=== PATIENT | female | born 1940 | race Caucasian/White ===

== ENCOUNTER 2018-01-06 10:25 | Emergency (ER) | payer MEDICARE, BC ==
--- NOTE | 2018-01-06 11:16 | ER Document Report ---
ED General - General Chief Complaint: Numbness of Face Stated Complaint: ARM AND FACIAL NUMBNESS Time Seen by Provider: 01/06/18 10:48 Notes: Patient says she is experiencing numbness of her left hand which comes and goes for the past week. She is also noticed numbness of the left side of her face during this week. The episodes seem to be occurring more frequently and lasting longer. She is not having any motor deficits and is not having any problems with her balance. No visual changes. Has had some headache on the left side of her head as well as some "pressure" in that ear. Patient has not had any actual chest pains. This morning, patient noticed some discomfort in the left axilla, which is the first time that has happened. Patient had diagnosis of a TIA in 2003 which affected her right side, more motor function, as well as some blurry vision. No shortness of breath or difficulty breathing. Patient has hypertension, but usually well controlled. Has not missed any of her medications. Says she has been told to take a baby aspirin every day, but only takes it every other day because she does not tolerate it well. Has experienced some pains in her right foot which she thought was due to an old injury but saw a vascular surgeon in [place] with her that she had intermittent claudication for which they recommended the aspirin. TRAVEL OUTSIDE OF THE [place] IN LAST 30 DAYS: No - Related Data Allergies/Adverse Reactions: No Known Allergies Allergy (Unverified 01/06/18 10:27) Past Medical History - Social History Smoking Status: Unknown if Ever Smoked Cigarette use (# per day): No Family History: Reviewed & Not Pertinent - Past Medical History Cardiac Medical History: Reports: Hx Hypertension Denies: Hx Atrial Fibrillation, Hx Coronary Artery Disease, Hx DVT, Hx Heart Attack Neurological Medical History: Reports: Other - History of TIA in 2004 which cause weakness of her right side and visual sx Endocrine Medical History: Denies: Hx Diabetes Mellitus Type 1, Hx Diabetes Mellitus Type 2 Review of Systems - Review of Systems Notes: REVIEW OF SYSTEMS: CONSTITUTIONAL : Denies fever. EENT: Denies eye, ear, nose or mouth or throat pain or other symptoms. "Pressure" feeling in left ear. CARDIOVASCULAR: Denies chest pain. Did have some discomfort in the left axilla this morning, for the first time. Patient has warm and pink toes on both feet. However, I do not feel dorsalis pedis pulses bilaterally. I do, however, definitely feel very good posterior tibial pulses bilaterally. Capillary refill is brisk and normal bilaterally. RESPIRATORY: Denies cough, chest congestion, or shortness of breath. GASTROINTESTINAL: Denies abdominal pain or nausea, vomiting, or diarrhea. GENITOURINARY: Denies difficulty or painful urinating, urinary frequency, blood in urine. MUSCULOSKELETAL: Denies back or neck pain. Denies joint pain or swelling. SKIN: Denies rash or skin lesions. NEUROLOGICAL: See HPI. Denies LOC or altered mental status. Headache on the left side of her head. Sensory losses of the left face and left hand, but denies motor deficits. ALL OTHER SYSTEMS REVIEWED AND NEGATIVE. Physical Exam - Vital signs Vitals: Temp Pulse Resp BP Pulse Ox 98.0 F 95 14 194/84 H 97 01/06/18 10:30 01/06/18 10:30 01/06/18 10:30 01/06/18 10:30 01/06/18 10:30 Interpretation: Hypertensive - Notes Notes: PHYSICAL EXAMINATION: GENERAL: Well-appearing, in no acute distress. Ambulatory without difficulty. HEAD: Atraumatic, normocephalic. EYES: Pupils equal round and reactive to light, extraocular movements intact. ENT: oropharynx clear without exudates. Moist mucous membranes. NECK: Normal range of motion, supple. No carotid bruits heard. LUNGS: Breath sounds clear and equal bilaterally. No chest wall or rib tenderness. HEART: Regular rate and rhythm without murmurs. ABDOMEN: Soft, nontender. No guarding or rebound. No masses. BACK: No tenderness throughout entire back. EXTREMITIES: Normal range of motion without pain. NEUROLOGICAL: Normal speech, normal gait. Normal sensory, motor, and reflex exams. Awake, alert, and oriented x3. Cranial nerves normal. PSYCH: Normal mood, normal affect. SKIN: Warm, dry, no rashes. Course - Re-evaluation Re-evalutation: 01/06/18 12:[address] Labs [address] essentially normal. CT scan essentially normal. Discussed this case with patient's primary care provider, Dr. Encarnacion, and we will obtain carotid Dopplers and MRI of the brain. 01/06/18 19:42 Both MRI of the brain and MRA and the carotid Dopplers were normal. - Vital Signs Vital signs: Temp Pulse Resp BP Pulse Ox 98.0 F 78 16 158/68 H 98 01/06/18 17:45 01/06/18 17:45 01/06/18 17:45 01/06/18 17:45 01/06/18 17:45 - Laboratory Result Diagrams: 01/06/18 10:53 01/06/18 10:53 Laboratory results interpreted by me: 01/06/18 10:53 Calcium 10.3 H - Diagnostic Test Radiology reviewed: Image reviewed, Reports reviewed - CT of the head shows some chronic microvascular ischemic changes, nothing acute. No stroke seen. Discharge - Discharge Clinical Impression: Left facial numbness, Numbness of left hand, TIA (transient ischemic attack) Condition: Stable Disposition: HOME, SELF-CARE Additional Instructions: Numbness or Paresthesia Definition: Numbness and tingling are decreased or abnormal sensations caused by altered sensory nerve function. Description: The feeling of having a foot "fall asleep" is a familiar one. This same combination of numbness and tingling can occur in any region of the body and may be caused by a wide variety of disorders. Sensations such as these , which occur without any associated stimulus, are called paresthesias. Other types of paresthesias include feelings of cold, warmth, burning, itching, and skin crawling. Causes: Sensation is carried to the brain by neurons (nerve cells) running from the outer parts of the body to the spinal cord in bundles called nerves. In the spinal cord, these neurons make connections with other neurons that run up to the brain. Paresthesias are caused by disturbances in the function of neurons in the sensory pathway. This disturbance can occur in the central nervous system (the brain and spinal cord), the nerve roots that are attached to the spinal cord, or the peripheral nervous system (nerves outside the brain and spinal cord). Peripheral disturbances are the most common cause of paresthesias. "Falling asleep" occurs when the blood supply to a nerve is cut off-a condition called ischemia. Ischemia usually occurs when an artery is compressed as it passes through a tightly flexed joint. Sleeping with the arms above the head or sitting with the legs tightly crossed frequently cause numbness and tingling. Direct compression of the nerve also causes paresthesias. Compression can be short-lived, as when a heavy backpack compresses the nerves passing across the shoulders. Compression may also be chronic. Chronic nerve compression occurs in entrapment syndromes. The most common example is carpal tunnel syndrome. Carpal tunnel syndrome occurs when the median nerve is compressed as it passes through a narrow channel in the wrist. Repetitive motion or prolonged vibration can cause the lining of the channel to swell and press on the nerve. Chronic nerve root compression, or radiculopathy, can occur in disk disease or spinal arthritis. Other causes of paresthesias related to disorders of the peripheral nerves include: * Metabolic or nutritional disturbances. These disturbances include diabetes, hypothyroidism (a condition caused by too little activity of the thyroid gland) , alcoholism, malnutrition, and vitamin B12 deficiency. Trauma. Trauma includes injuries that crush, sever, or pull on nerves. * Inflammation. * Connective tissue disease. These diseases include arthritis, systemic lupus erythematosus (a chronic inflammatory disease that affects many systems of the body, including the nervous system), polyarteritis nodosa (a vascular disease that causes widespread inflammation and ischemia of small and medium-size arteries), and Sj&ouml;gren's syndrome (a disorder marked by insufficient moisture in the tear ducts, salivary glands, and other glands). * Toxins. Toxins include heavy metals (metallic elements such as arsenic, lead, and mercury which can, in large amounts, cause poisoning), certain antibiotics and chemotherapy agents, solvents, and overdose of pyridoxine (vitamin B6). * Malignancy. * Infections. Infections include Lyme disease, human immunodeficiency virus (HIV ), and leprosy. * Hereditary disease. These diseases include Efhmalz-Ylikk-Yeoqn disease (a hereditary disorder that causes wasting of the leg muscles, resulting in malformation of the foot), porphyria (a group of inherited disorders in which there is abnormally increased production of substances called porphyrins), and Miguel-Brown's syndrome (a hereditary disorder of the nerve root). Paresthesias can also be caused by central nervous system disturbances, including stroke, TIA (transient ischemic attack), tumor, trauma, multiple sclerosis, or infection. Symptoms: Sensory nerves supply or innervate particular regions of the body. Determining the distribution of symptoms is an important way to identify the nerves involved. For instance, the median nerve innervates the thumb, the first two fingers, half of the ring finger, and the part of the hand to which they connect. The ulnar nerve innervates the other half of the ring finger, the little finger, and the remainder of the hand. Distribution of symptoms may also aid diagnosis of the underlying disease. Diabetes usually causes a symmetrical "glove and stocking" distribution in the hands and feet. Multiple sclerosis may cause symptoms in several, widely areas. Other symptoms may accompany paresthesias, depending on the type and severity of the nerve disturbance. For instance, weakness may accompany damage to nerves that carry both sensory and motor neurons. (Motor neurons are those that carry messages outward from the brain.) Diagnosis: A careful history of the patient is needed for a diagnosis of paresthesias. The medical history should focus on the onset, duration, and location of symptoms. The history may also reveal current related medical problems and recent or past exposure to drugs, toxins, infection, or trauma. The family medical history may suggest a familial disorder. A work history may reveal repetitive motion, chronic vibration, or industrial chemical exposure. The physical and neurological examination tests for distribution of symptoms and alterations in reflexes, sensation, or strength. The distribution of symptoms may be mapped by successive stimulation over the affected area of the body. Lab tests for paresthesia may include blood tests and urinalysis to detect metabolic or nutritional abnormalities. Other tests are used to look for specific suspected causes. Nerve conduction velocity tests, electromyography, and imaging studies of the affected area may be employed. Nerve biopsy may be indicated in selected cases. Treatment: Treatment of paresthesias depends on the underlying cause. For limbs that have "fallen asleep," restoring circulation by stretching, exercising , or massaging the affected limb can quickly dissipate the numbness and tingling. If the paresthesia is caused by a chronic disease such as diabetes or occurs as a complication of treatments such as chemotherapy, most treatments are aimed at relieving symptoms. Anti-inflammatory drugs such as aspirin or ibuprofen are recommended if symptoms are mild. In more difficult cases, antidepressant drugs such as amitriptyline (Elavil) are sometimes prescribed. These drugs are given at a much lower dosage for this purpose than for relief of depression. They are thought to help because they alter the body's perception of pain. In severe cases, opium derivatives such as codeine can be prescribed. Currently trials are being done to determine whether treatment with human nerve growth factor will be effective in regenerating the damaged nerves. Alternative treatment: Several alternative treatments are available to help relieve symptoms of paresthesia. Nutritional therapy includes supplementation with B complex vitamins, especially vitamin B 12 (intramuscular injection of vitamin B12 is most effective). Vitamin supplements should be used cautiously however. Overdose of Vitamin B6 is one of the causes of paresthesias. People experiencing paresthesia should also avoid alcohol. Acupuncture and massage are said to relieve symptoms. Self-massage with aromatic oils is sometimes helpful. The application of topical ointments containing capsaicin, the substance that makes hot peppers hot, provides relief for some. It may also be helpful to wear loosely fitting shoes and clothing. None of these alternatives should be used in place of traditional therapy for the underlying condition. Prognosis: Treating the underlying disorder may reduce the occurrence of paresthesias. Paresthesias resulting from damaged nerves may persist throughout or even beyond the recovery period. The overall prognosis depends on the cause. Prevention: Preventing the underlying disorder may reduce the incidence of paresthesias. For those with frequent paresthesias caused by ischemia, changes in posture may help. Transient Ischemic Attack You have been diagnosed as having a transient ischemic attack (TIA). This is caused when an artery to the brain has been temporarily blocked. It can result in visual changes, difficulty with speech, and weakness or numbness -- usually limited to one side of the body. TIA symptoms usually resolve within an hour, but a TIA is serious, as it may be a warning sign of an impending stroke. To prevent further episodes, you may be placed on medication to reduce the possibility that your platelets will aggregate and form blood clots in the arteries that supply the brain. Usually, this includes aspirin and sometimes other platelet inhibitors. Further evaluation is often necessary to make an exact diagnosis as to where these blood clots are originating, and if anything else needs to be done to correct the problem. Call the physician or go to the emergency room if episodes occur with increasing frequency. If symptoms occur that don't go away within a few minutes , call 911. NORMAL EXAM AND WORKUP: At this time, your examination and workup show no significant abnormality. No significant abnormal physical findings were noted. All laboratory, EKG, and imaging (x-ray, CT scans, ultrasound) studies that were ordered show no significant abnormality. Although your examination and all studies that were ordered showed no significant abnormal finding, there are no examinations and no studies that are 100% accurate. There is always the possibility that some abnormality could exist and not be detected with physical examination or within the limits and capabilities of laboratory and other studies. You should return or follow up as you were instructed on your visit today for further evaluation if your symptoms do not resolve. Aspirin Aspirin has been shown to have a beneficial effect on blood circulation by reducing the clotting effect of platelets in the blood. These beneficial effects can be achieved by taking just a single baby (62.5 mg) aspirin a day. It is recommended that any person over the age of forty take a single baby aspirin every day for heart and brain circulation, unless you are allergic to aspirin or have some significant bleeding disorder. It is strongly recommended that people who have proven cardiac or blood circulation disturbances should take a baby aspirin every day. Take a baby aspirin daily or, alternatively, 2 baby aspirins every other day. FOLLOW-UP CARE: If you have been referred to a physician for follow-up care, call the physician s office for an appointment as you were instructed or within the next two days. If you experience worsening or a significant change in your symptoms, notify the physician immediately or return to the Emergency Department at any time for re-evaluation. Follow-up with your primary care provider, Dr. Encarnacion. Call his office in the morning to schedule a follow-up appointment. If you develop any new or troubling signs, return for us to reevaluate your condition. Referrals: DANO MERCADO MD [Primary Care Provider] - Follow up as needed
[2018-01-06 11:25] LABS: ABSOLUTE EOSINOPHILS # (AUTO) 0.2 10^3/uL (0.0-0.6); ABSOLUTE LYMPHOCYTES (AUTO) 3.1 10^3/uL (0.5-4.7); ABSOLUTE MONOCYTES (AUTO) 0.7 10^3/uL (0.1-1.4); ABSOLUTE NEUT (AUTO) 3.3 10^3/uL (1.7-8.2); BASOPHILS % (AUTO) 0.5 % (0-2); EOSINOPHILS % (AUTO) 2.4 % (0-6); HEMATOCRIT 43.7 % (36.0-47.0); HEMOGLOBIN 15.3 g/dL (12.0-15.5); LYMPHOCYTES % (AUTO) 42.7 % (13-45); MEAN CORPUSCULAR HEMOGLOBIN 32.4 pg (27.0-33.4); MEAN CORPUSCULAR VOLUME 93 fl (80-97); PLATELET COUNT 232 10^3/uL (150-450); RED BLOOD COUNT 4.73 10^6/uL (3.72-5.28); RED CELL DISTRIBUTION WIDTH 12.3 % (11.5-14.0); SEGMENTED NEUTROPHILS % (AUTO) 44.4 % (42-78); TOTAL CELLS COUNTED % (AUTO) 100 %; WHITE BLOOD COUNT 7.3 10^3/uL (4.0-10.5)
[2018-01-06 11:39] LABS: ALANINE AMINOTRANSFERASE 31 U/L (9-52); ALBUMIN 4.7 g/dL (3.5-5.0); ALKALINE PHOSPHATASE 53 U/L (38-126); ANION GAP 14 (5-19); ASPARTATE AMINO TRANSFERASE 29 U/L (14-36); BILIRUBIN,DIRECT 0.3 mg/dL (0.0-0.4); BILIRUBIN,TOTAL 1.2 mg/dL (0.2-1.3); BLOOD UREA NITROGEN 16 mg/dL (7-20); CALCIUM 10.3 mg/dL (8.4-10.2); CARBON DIOXIDE 28 mmol/L (22-30); CHLORIDE 101 mmol/L (98-107); CREATINE KINASE 55 U/L (30-135); GLUCOSE 95 mg/dL (75-110); POTASSIUM 4.3 mmol/L (3.6-5.0); SODIUM 143.3 mmol/L (137-145)
--- NOTE | 2018-01-06 11:45 | RADIOLOGY REPORT (SQ) ---
EXAM DESCRIPTION: CT HEAD WITHOUT COMPLETED DATE/TIME: 01/06/2018 11:27 am REASON FOR STUDY: numbness COMPARISON: None. TECHNIQUE: Axial images acquired through the brain without intravenous contrast. Images reviewed wi th bone, brain and subdural windows. Images stored on PACS. All CT scanners at this facility use dose modulation, iterative reconstruction, and/or weight based d osing when appropriate to reduce radiation dose to as low as reasonably achievable (ALARA). [facility]: Dose Right [facility]: CareDose [facility]: Dose Right [facility]: Teradose 4D [facility]: Periscape RADIATION DOSE: CT Rad equipment meets quality standard of care and radiation dose reduction techniq ues were employed. CTDIvol: 53.2 mGy. DLP: 1070 mGy-cm. mGy. LIMITATIONS: None. FINDINGS: VENTRICLES: Prominent. CEREBRUM: No masses. No hemorrhage. No midline shift. Areas of low density in the white matter mos t likely due to chronic micro-vascular ischemic change. No evidence for acute infarction. CEREBELLUM: No masses. No hemorrhage. No alteration of density. No evidence for acute infarction. EXTRAAXIAL SPACES: Mild age-related involutional change. No fluid collections. No masses. ORBITS AND GLOBE: No intra- or extraconal masses. Normal contour of globe without masses. CALVARIUM: No fracture. PARANASAL SINUSES: No fluid or mucosal thickening. SOFT TISSUES: No mass or hematoma. OTHER: No other significant finding. IMPRESSION: MILD CHRONIC CHANGES OF ATROPHY AND MICROVASCULAR ISCHEMIA. NO ACUTE PROCESS. EVIDENCE OF ACUTE STROKE: NO. TECHNICAL DOCUMENTATION: JOB ID: [id number] Quality ID # [id number]: Final reports with documentation of one or more dose reduction techniques (e.g., Au tomated exposure control, adjustment of the mA and/or kV according to patient size, use of iterative reconstruction technique) 2010 [employer]- All Rights Reserved Reading location - IP/workstation name: [email or web address]
[2018-01-06 11:51] LABS: CREATINE KINASE MB 0.69 ng/mL (<4.55)
[2018-01-06 11:53] LABS: TROPONIN I < 0.012 ng/mL
[2018-01-06 12:14] LABS: APPEARANCE,URINE CLEAR; BILIRUBIN,URINE NEGATIVE (NEGATIVE); COLOR,URINE STRAW; GLUCOSE, URINE NEGATIVE (NEGATIVE); KETONES,URINE NEGATIVE (NEGATIVE); LEUKOCYTE ESTERASE,URINE NEGATIVE (NEGATIVE); NITRITE,URINE NEGATIVE (NEGATIVE); PROTEIN,URINE NEGATIVE (NEGATIVE); URINE SPECIFIC GRAVITY 1.003; UROBILINOGEN,URINE NEGATIVE mg/dL (<2.0)
[2018-01-06] MEDS ORDERED: LORAZEPAM 1 MG TABLET PO ONE (13:15)
--- NOTE | 2018-01-06 13:25 | EKG REPORT ---
SEVERITY:- NORMAL ECG - SINUS RHYTHM : Confirmed by: Juan Cheung MD 06-Jan-2018 13:24:53
--- NOTE | 2018-01-06 15:17 | RADIOLOGY REPORT (SQ) ---
EXAM DESCRIPTION: MRI HEAD WITHOUT; MRA HEAD WITHOUT COMPLETED DATE/TIME: 01/06/2018 2:52 pm REASON FOR STUDY: Numb left face and left hand, Hx vasc insufficienc; Left face and left hand numb, Hx vascular insuffic COMPARISON: CT brain 01/06/2018 CT orbits 01/20/2014 TECHNIQUE: Multiplanar imaging includes non-contrasted T1, T2, FLAIR, and diffusion with ADC map seq uences. Images stored on PACS. [place] MRA exam was performed, with 3D [id number] noncontrast technique. Source data a nd maximum intensity projected images were reviewed and saved to pac's. LIMITATIONS: None. FINDINGS: ANATOMY: No anomalies. Normal vascular flow voids. Pituitary fossa normal. CSF SPACES: Normal in size and contour. No hemorrhage. CEREBRUM: No MR evidence of acute ischemic change, acute intracranial hemorrhage, mass effect, or mid line shift. Moderate age-appropriate small vessel ischemic change in the hemispheric white matter, with a tiny le ft frontal chronic appearing cortical infarct. POSTERIOR FOSSA: No signal alteration. No hemorrhage. No edema, masses or mass effect. Internal arlene tory canals, cerebello-pontine angles, mastoids normal. DIFFUSION IMAGING: Negative for acute or sub-acute infarction. ORBITS: No masses. Globes post cataract surgery bilaterally. PARANASAL SINUSES: No fluid levels. Mucosa normal. [place] MRA: The anterior circulation demonstrates no aneurysm or focal high-grade stenosis . There is anatomic variant, absent right the-1 segment anterior cerebral artery, and no visible rig ht posterior communicating artery (isolated right MCA). Flow is identified in both distal intracranial vertebral arteries and throughout the basilar artery. There is mild narrowing of the distal basilar artery less than 50% diameter stenosis. Right posteri or cerebral artery arises off the vertebrobasilar circulation, with focal moderate about 50% stenosis along its midportion, best shown on series 303, image 24. There is flow signal distal to the narrow ing in the right posterior cerebral artery. On the left side, posterior cerebral artery originates o ff the left carotid with a origin left [employer], an anatomic variant. No focal stenosis. Infundibu lum at its origin without discrete aneurysm. . IMPRESSION: No acute brain parenchymal findings. 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 origin left [employer], an anatomic variant. MRA exam demonstrates no right-sided 80-1 segment anterior cerebral artery. This is an anatomic vari ant" isolated " MCA without focal stenosis EVIDENCE OF ACUTE STROKE: NO. TECHNICAL DOCUMENTATION: JOB ID: [id number] [employer]- All Rights Reserved Reading location - IP/workstation name: [email or web address] [id number]
--- NOTE | 2018-01-06 15:17 | RADIOLOGY REPORT (SQ) ---
EXAM DESCRIPTION: MRI HEAD WITHOUT; MRA HEAD WITHOUT COMPLETED DATE/TIME: 01/06/2018 2:52 pm REASON FOR STUDY: Numb left face and left hand, Hx vasc insufficienc; Left face and left hand numb, Hx vascular insuffic COMPARISON: CT brain 01/06/2018 CT orbits 01/20/2014 TECHNIQUE: Multiplanar imaging includes non-contrasted T1, T2, FLAIR, and diffusion with ADC map seq uences. Images stored on PACS. [place] MRA exam was performed, with 3D [id number]-[id number] noncontrast technique. Source data a nd maximum intensity projected images were reviewed and saved to pac's. LIMITATIONS: None. FINDINGS: ANATOMY: No anomalies. Normal vascular flow voids. Pituitary fossa normal. CSF SPACES: Normal in size and contour. No hemorrhage. CEREBRUM: No MR evidence of acute ischemic change, acute intracranial hemorrhage, mass effect, or mid line shift. Moderate age-appropriate small vessel ischemic change in the hemispheric white matter, with a tiny le ft frontal chronic appearing cortical infarct. POSTERIOR FOSSA: No signal alteration. No hemorrhage. No edema, masses or mass effect. Internal arlene tory canals, cerebello-pontine angles, mastoids normal. DIFFUSION IMAGING: Negative for acute or sub-acute infarction. ORBITS: No masses. Globes post cataract surgery bilaterally. PARANASAL SINUSES: No fluid levels. Mucosa normal. [place] MRA: The anterior circulation demonstrates no aneurysm or focal high-grade stenosis . There is anatomic variant, absent right the-1 segment anterior cerebral artery, and no visible rig ht posterior communicating artery (isolated right MCA). Flow is identified in both distal intracranial vertebral arteries and throughout the basilar artery. There is mild narrowing of the distal basilar artery less than 50% diameter stenosis. Right posteri or cerebral artery arises off the vertebrobasilar circulation, with focal moderate about 50% stenosis along its midportion, best shown on series 303, image 24. There is flow signal distal to the narrow ing in the right posterior cerebral artery. On the left side, posterior cerebral artery originates o ff the left carotid with a origin left [employer] INTERVIEWER, an anatomic variant. No focal stenosis. Infundibu lum at its origin without discrete aneurysm. . IMPRESSION: No acute brain parenchymal findings. 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 origin left [employer] INTERVIEWER, an anatomic variant. MRA exam demonstrates no right-sided 80-1 segment anterior cerebral artery. This is an anatomic vari ant" isolated " MCA without focal stenosis EVIDENCE OF ACUTE STROKE: NO. TECHNICAL DOCUMENTATION: JOB ID: [id number] [employer]- All Rights Reserved Reading location - IP/workstation name: [email or web address] [id number]
--- NOTE | 2018-01-06 16:34 | RADIOLOGY REPORT (SQ) ---
EXAM DESCRIPTION: CAROTID DOPPLER COMPLETED DATE/TIME: 01/06/2018 4:24 pm REASON FOR STUDY: Numbness left face and left hand, Hx claudication COMPARISON: MRI brain, MRA exam [place], CT brain 01/06/2018 TECHNIQUE: Grayscale ultrasound, Doppler velocity and spectra, and color Doppler images acquired of the extra-cranial carotid and vertebral arteries. Images stored on PACS. LIMITATIONS: None. FINDINGS: RIGHT CAROTID CCA Velocities: Within normal limits. ICA Velocities Peak systolic 0.81 m/s. End diastolic 0.24 m/s. Proximal ICA/CCA peak systolic ratio 1.5. Spectra normal. No significant plaque. LEFT CAROTID CCA Velocities: Within normal limits. ICA Velocities Peak systolic 0.59 m/s. End diastolic 0.19 m/s. Proximal ICA/CCA peak systolic ratio 1.5. Spectra normal. No significant plaque. VERTEBRAL ARTERIES: Antegrade flow. Normal waveforms. SUBCLAVIAN ARTERIES: Not evaluated OTHER: No other significant finding. IMPRESSION: NO HEMODYNAMICALLY SIGNIFICANT STENOSIS. COMMENT: Quality ID #195: Velocity criteria are extrapolated from the diameter data as defined by t he Society of Radiologists in Ultrasound Consensus Conference. Radiology 2003: 229; 340-346. TECHNICAL DOCUMENTATION: JOB ID: [id number] [employer]- All Rights Reserved Reading location - IP/workstation name: [email or web address]
[2018-01-06 17:45] VITALS: BP 158/68
== END 2018-01-06 17:45 | disposition home or self-care (01) ==
LOC: ER 10:25
DX: G45.9 Transient cerebral ischemic attack, unspecified (principal); R20.0 Anesthesia of skin; R51 Headache; I10 Essential (primary) hypertension; Z86.73 Personal history of transient ischemic attack (TIA), and cerebral infarction without residual deficits
CPT/HCPCS: 93005; 99284; 36415; 82553; 82962; 82550; 85025; 80053; 81001; 84484; 93880; 70551; 70544; 70450; 93010; A9270

== ENCOUNTER 2019-10-09 09:38 | Observation (INO) | payer MEDICARE, BC ==
[2019-10-09] MEDS ORDERED: TROPICAMIDE 1% OPH SOLN 15 ML OU ONE (10:31)
[2019-10-09] MEDS ORDERED: PHENYLEPHRINE 10% OU ONE (10:31)
--- NOTE | 2019-10-09 10:33 | ER Document Report ---
ED General - General Chief Complaint: Blurred Vision Stated Complaint: BLURRED VISION IN RIGHT EYE Time Seen by Provider: 10/09/19 09:52 Primary Care Provider: DAVY YEUNG MD [Primary Care Provider] - Follow up as needed Notes: Patient presents with painless visual loss on the right side described as like a curtain coming from the medial side which occurred about 4 hours ago after she woke up. When she woke up her vision was normal. She has no diplopia but everything looks dark like it is a film on it. No flashes no floaters no pain. No motor or sensory symptoms. History of TIA. Has had eye surgery and sees Dr. Kennedy" at the ID office. TRAVEL OUTSIDE OF THE [place] IN LAST 30 DAYS: No - Related Data Allergies/Adverse Reactions: No Known Allergies Allergy (Unverified 01/06/18 10:27) Past Medical History - General Information source: Patient - Social History Smoking Status: Never Smoker Frequency of alcohol use: None Drug Abuse: None Family History: Reviewed & Not Pertinent Patient has homicidal ideation: No - Past Medical History Cardiac Medical History: Reports: Hx Hypertension Denies: Hx Atrial Fibrillation, Hx Coronary Artery Disease, Hx DVT, Hx Heart Attack Endocrine Medical History: Denies: Hx Diabetes Mellitus Type 1, Hx Diabetes Mellitus Type 2 Renal/ Medical History: Denies: Hx Peritoneal Dialysis Review of Systems - Review of Systems Notes: REVIEW OF SYSTEMS GEN: Denies fever, chills, weight loss ENT: Denies sore throat, nasal discharge, ear pain EYES: See HPI e CV: Denies chest pain, palpitations, edema RESP: Denies cough, shortness of breath, wheezing GI: Denies abdominal pain, nausea, vomiting, diarrhea MSK: Denies joint pain/swelling, edema, SKIN: Denies rash, skin lesions LYMPH: Denies swollen glands/lymph nodes NEURO: Denies headache, focal weakness or numbness, dizziness PSYCH: Denies depression, suicidal or homicidal ideation PHYSICAL EXAMINATION General: No acute distress, well-nourished Head: Atraumatic, normocephalic ENT: Mouth normal, oropharynx moist, no exudates or tonsillar enlargement Eyes: Normal lids normal extraocular range of motionleft acuity normal right acuity finger counting at 4 feet Neck: No JVD, supple, no guarding CVS: Normal rate, regular rhythm, no murmurs Resp: No resp distress, equal and normal breath sounds bilaterally GI: Nondistended, soft, no tenderness to palpation, no rebound or guarding Ext: No deformities, no edema, normal range of motion in upper and lower ext Back: No CVA or midline TTP Skin: No rash, warm Lymphatic: No lymphadeopathy noted Neuro: Awake, alert. Face symmetric. GCS 15. Physical Exam - Vital signs Vitals: Temp Pulse Resp BP Pulse Ox 97.9 F 101 H 20 169/82 H 96 10/09/19 09:46 10/09/19 09:46 10/09/19 09:46 10/09/19 09:46 10/09/19 09:46 - HEENT Visual acuity- Right eye: nothing Visual acuity- Left eye: 20/40 Visual acuity- Both eyes: 20/40 Course - Re-evaluation Re-evalutation: 10/09/19 10:32 Painless fullfield visual loss. Bedside ultrasound does not show retinal detachment or vitreous blood. More concern for central retinal artery occlusion versus vein We will attempt to dilate although this may not be possible at [place]. Will get a head CT although this does not follow the pattern of a stroke. 10/09/19 13:01 Stroke work-up negative Ultrasound negative for vitreous or large retinal detachment Dilated the eye, unable to see a great view of the fundus but do not see pallor Branch retinal artery versus central retinal artery pressure central vein versus giant cell arteritis versus TIA. On repeat exam the patient vision is actually improving but she still having some blurred vision. She can read my name fahad and bensonfekatrin. Discussed with Jorge for admission. She can be ruled out for stroke or embolus and then follow-up with her cash surrender calculator tomorrow. I do not think we are missing a time sensitive ophthalmologic issue given the lack of clear retinal detachment or mcallister red fundus with pale retina - Vital Signs Vital signs: Temp Pulse Resp BP Pulse Ox 97.9 F 80 14 134/81 H 95 10/09/19 09:52 10/09/19 12:00 10/09/19 12:18 10/09/19 12:18 10/09/19 12:18 - Laboratory Result Diagrams: 10/09/19 10:43 10/09/19 10:43 Laboratory results interpreted by me: 10/09/19 10/09/1910/08/20 10:37 10:43 10:43 Hgb 15.9 H Glucose 147 H POC Glucose 156 H Procedures - Ultrasound/Bedside Ultrasound/Bedside Ultrasound: Other - Ocular: Right limited. No echoes within the globe including no flap suggestive of retinal attachment or sparkles suggestive of vitreous bleed. Discharge - Discharge Clinical Impression: Vision blurred Condition: Good Disposition: ADMITTED OBSERVATION Admitting Provider: Alba (Hospitalist) Unit Admitted: Telemetry Referrals: DAVY YEUNG MD [Primary Care Provider] - Follow up as needed
--- NOTE | 2019-10-09 10:54 | RADIOLOGY REPORT (SQ) ---
EXAM DESCRIPTION: CHEST SINGLE VIEW IMAGES COMPLETED DATE/TIME: 10/09/2019 10:30 am REASON FOR STUDY: DIPLOPIA COMPARISON: Two-view chest 08/18/2009 EXAM PARAMETERS: NUMBER OF VIEWS: One view. TECHNIQUE: Single frontal radiographic view of the chest acquired. RADIATION DOSE: NA LIMITATIONS: None. FINDINGS: LUNGS AND PLEURA: No opacities, masses or pneumothorax. No pleural effusion. MEDIASTINUM AND HILAR STRUCTURES: No masses. Contour normal. HEART AND VASCULAR STRUCTURES: Heart normal in size. Normal vasculature. BONES: No acute findings. HARDWARE: None in the chest. OTHER: No other significant finding. IMPRESSION: NO ACUTE RADIOGRAPHIC FINDING IN THE CHEST. TECHNICAL DOCUMENTATION: JOB ID: [id number] 2010 [employer]- All Rights Reserved Reading location - IP/workstation name: [email or web address]
--- NOTE | 2019-10-09 10:58 | RADIOLOGY REPORT (SQ) ---
EXAM DESCRIPTION: CT HEAD WITHOUT IMAGES COMPLETED DATE/TIME: 10/09/2019 10:30 am REASON FOR STUDY: DIPLOPIA COMPARISON: 01/06/2018 TECHNIQUE: Axial images acquired through the brain without intravenous contrast. Images reviewed wit h bone, brain and subdural windows. Images stored on PACS. All CT scanners at this facility use dose modulation, iterative reconstruction, and/or weight based d osing when appropriate to reduce radiation dose to as low as reasonably achievable (ALARA). [facility]: Dose Right [facility]: CareDose [facility]: Dose Right [facility]: Teradose 4D [facility]: Smart Sportlobster RADIATION DOSE: CT Rad equipment meets quality standard of care and radiation dose reduction techniq ues were employed. CTDIvol: 53.2 mGy. DLP: 911 mGy-cm.. LIMITATIONS: None. FINDINGS: VENTRICLES: Normal size and contour. CEREBRUM: No masses. No hemorrhage. No midline shift. Age appropriate white matter. No evidence for a cute infarction. CEREBELLUM: No masses. No hemorrhage. No alteration of density. No evidence for acute infarction. EXTRA-AXIAL SPACES: No fluid collections. ORBITS AND GLOBE: No intra- or extraconal masses. Normal contour of globe without masses. CALVARIUM: No fracture. PARANASAL SINUSES: No fluid or mucosal thickening. SOFT TISSUES: No mass or hematoma. OTHER: No other significant finding. IMPRESSION: NO ACUTE INTRACRANIAL FINDINGS. EVIDENCE OF ACUTE STROKE: NO. TECHNICAL DOCUMENTATION: JOB ID: [id number] Quality ID # [id number]: Final reports with documentation of one or more dose reduction techniques (e.g., Au tomated exposure control, adjustment of the mA and/or kV according to patient size, use of iterative reconstruction technique) 2010 [employer]- All Rights Reserved Reading location - IP/workstation name: [email or web address]
[2019-10-09 11:06] LABS: ABSOLUTE EOSINOPHILS # (AUTO) 0.2 10^3/uL (0.0-0.6); ABSOLUTE MONOCYTES (AUTO) 0.5 10^3/uL (0.1-1.4); HEMOGLOBIN 15.9 g/dL (12.0-15.5); TOTAL CELLS COUNTED % (AUTO) 100 %
[2019-10-09 11:11] LABS: ABSOLUTE LYMPHOCYTES (AUTO) 2.4 10^3/uL (0.5-4.7); ABSOLUTE NEUT (AUTO) 2.6 10^3/uL (1.7-8.2); BASOPHILS % (AUTO) 0.9 % (0-2); EOSINOPHILS % (AUTO) 2.9 % (0-6); HEMATOCRIT 44.7 % (36.0-47.0); LYMPHOCYTES % (AUTO) 42.5 % (13-45); MEAN CORPUSCULAR HEMOGLOBIN 32.8 pg (27.0-33.4); MEAN CORPUSCULAR HGB CONC 35.4 g/dL (32.0-36.0); MEAN CORPUSCULAR VOLUME 93 fl (80-97); MONOCYTES % (AUTO) 8.4 % (3-13); PLATELET COUNT 224 10^3/uL (150-450); RED BLOOD COUNT 4.84 10^6/uL (3.72-5.28); RED CELL DISTRIBUTION WIDTH 12.5 % (11.5-14.0); SEGMENTED NEUTROPHILS % (AUTO) 45.3 % (42-78); WHITE BLOOD COUNT 5.6 10^3/uL (4.0-10.5)
[2019-10-09 11:12] LABS: INTERNATIONAL RATION (INR) 0.97; PROTHROMBIN TIME 12.9 SEC (11.4-15.4)
[2019-10-09 11:13] LABS: PARTIAL THROMBOPLASTIN TIME 26.4 SEC (23.5-35.8)
[2019-10-09 11:20] LABS: ALBUMIN 4.7 g/dL (3.5-5.0); ALKALINE PHOSPHATASE 52 U/L (38-126); ANION GAP 8 (5-19); ASPARTATE AMINO TRANSFERASE 33 U/L (14-36); BILIRUBIN,DIRECT 0.1 mg/dL (0.0-0.4); BILIRUBIN,TOTAL 1.2 mg/dL (0.2-1.3); BLOOD UREA NITROGEN 19 mg/dL (7-20); CALCIUM 10.2 mg/dL (8.4-10.2); CARBON DIOXIDE 30 mmol/L (22-30); CHLORIDE 101 mmol/L (98-107); CREATINE KINASE 55 U/L (30-135); GLUCOSE 147 mg/dL (75-110); POTASSIUM 3.7 mmol/L (3.6-5.0)
[2019-10-09 11:35] LABS: CREATINE KINASE MB 0.96 ng/mL (<4.55)
[2019-10-09 11:37] LABS: TROPONIN I < 0.012 ng/mL
--- NOTE | 2019-10-09 12:28 | EKG REPORT ---
SEVERITY:- DEFECTIVE ECG - BASELINE SPIKE ARTIFACTS, NOT DUE TO PACEMAKER SINUS RHYTHM PROBABLE LEFT ATRIAL ABNORMALITY : Confirmed by: Juan Cheung MD 09-Oct-2019 12:28:14
[2019-10-09] MEDS ORDERED: ASPIRIN 325 MG TABLET PO ONE (12:44)
--- NOTE | 2019-10-09 13:56 | PDOC CONSULTATION ---
History of Present Illness Admission Date/PCP: 10/09/19 13:15 DAVY YEUNG MD History of Present Illness: RASTA MCGRAW is a 79 year old female Past Medical History Cardiac Medical History: Reports: Hypertension Denies: Atrial Fibrillation, Coronary Artery Disease, DVT, Myocardial Infarction Endocrine Medical History: Denies: Diabetes Mellitus Type 1, Diabetes Mellitus Type 2 Social History Smoking Status: Never Smoker Family History Family History: Reviewed & Not Pertinent Medication/Allergy Allergies/Adverse Reactions: No Known Allergies Allergy (Unverified 01/06/18 10:27) Physical Exam Vital Signs: Temp Pulse Resp BP Pulse Ox 97.9 F 80 15 146/89 H 96 10/09/19 09:52 10/09/19 12:00 10/09/19 13:08 10/09/19 13:08 10/09/19 13:08 Intake & Output 10/08/19 10/09/19 10/10/19 06:59 06:59 06:59 Weight 60.5 kg Results Laboratory Results: 10/09/19 10:43 10/09/19 10:43 10/09/19 10/09/19 10:43 10:43 WBC 5.6 RBC 4.84 Hgb 15.9 H Hct 44.7 MCV 93 MCH 32.8 MCHC 35.4 RDW 12.5 Plt Count 224 Seg Neutrophils % 45.3 Sodium 138.7 Potassium 3.7 Chloride 101 Carbon Dioxide 30 Anion Gap 8 BUN 19 Creatinine 0.79 Est GFR ( Amer) > 60 Glucose 147 H Calcium 10.2 Total Bilirubin 1.2 AST 33 Alkaline Phosphatase 52 Total Protein 8.0 Albumin 4.7 10/09/19 10/09/19 10:43 10:43 Creatine Kinase 55 CK-MB (CK-2) 0.96 Troponin I < 0.012 Impressions: Chest X-Ray 10/09/19 10:13 IMPRESSION: NO ACUTE RADIOGRAPHIC FINDING IN THE CHEST. Head CT 10/09/19 10:13 IMPRESSION: NO ACUTE INTRACRANIAL FINDINGS. EVIDENCE OF ACUTE STROKE: NO.
[2019-10-09 15:18] VITALS: BP 137/75
--- NOTE | 2019-10-09 15:47 | PDOC CONSULTATION ---
Consultation Consult Date: 10/09/19 Attending physician:: OMAIRA NOGUERA Provider Consulted: SCOUT JAVED Consult reason:: Vision loss History of Present Illness Admission Date/PCP: 10/09/19 13:15 DAVY YEUNG MD Patient complains of: Acute onset loss of vision in the right eye History of Present Illness: RASTA MCGRAW is a 79 year old female with a history of cataracts, hypertension and hypothyroidism. She also reports hypercholesterolemia and TIA 2004. She states that she was hydrochlorothiazide in the past for hypertension and developed intermittent claudication in the right leg. Evidently the medicine was stopped and the discomfort went away. She maintains on aspirin and statin therapy. She states she woke up and had breakfast. Slight haze begin to form over her right eye. She states that it migrated from medial to lateral and at its worst could only see a small area the right lower quadrant. Her arrival in emergency department the patient's vision slowly began to return. At this time she states it is a little fuzzy but she has no problem reading my name badge at approximately 3 to 4 feet away. Please also see Dr. Downs's note. Past Medical History Cardiac Medical History: Reports: Hypertension Denies: Atrial Fibrillation, Coronary Artery Disease, DVT, Myocardial Infarction EENT Medical History: Reports: Cataracts Neurological Medical History: Reports: Migraine Endocrine Medical History: Reports: Hypothyroidism Denies: Diabetes Mellitus Type 1, Diabetes Mellitus Type 2 Psychiatric Medical History: Denies: Alcohol Dependency, Tobacco Dependency Past Surgical History Past Surgical History: Reports: Appendectomy, Hysterectomy, Other Social History Information Source: Patient Lives with: Family Smoking Status: Never Smoker Electronic Cigarette use?: No Frequency of Alcohol Use: Rare Hx Recreational Drug Use: No Hx Prescription Drug Abuse: No - Advance Directive Resuscitation Status: Full Code Family History Family History: Reviewed & Not Pertinent, CAD - CHF, COPD, Other - Renal failure Parental Family History Reviewed: Yes Children Family History Reviewed: Yes Sibling(s) Family History Reviewed.: Yes Medication/Allergy Allergies/Adverse Reactions: No Known Allergies Allergy (Unverified 01/06/18 10:27) Review of Systems All systems: reviewed and no additional remarkable complaints except as stated Eyes: PRESENT: visual disturbances Physical Exam Vital Signs: Temp Pulse Resp BP Pulse Ox 98.6 F 71 18 137/75 H 98 10/09/19 15:17 10/09/19 15:17 10/09/19 15:17 10/09/19 15:17 10/09/19 15:17 Intake & Output 10/08/19 10/09/19 10/10/19 06:59 06:59 06:59 Weight 60.5 kg General appearance: PRESENT: no acute distress, cooperative, well-developed, well-nourished Head exam: PRESENT: atraumatic, normocephalic Eye exam: PRESENT: conjunctiva pink, EOMI. ABSENT: PERRLA - Patient try diet was dilated for examination by the emergency department physician., scleral icterus Ear exam: PRESENT: normal external ear exam. ABSENT: bleeding, drainage Mouth exam: PRESENT: moist, tongue midline Teeth exam: ABSENT: poor dentation Neck exam: ABSENT: carotid bruit, JVD, lymphadenopathy Respiratory exam: PRESENT: symmetrical, unlabored. ABSENT: accessory muscle use, prolonged expiratory phas, rales, rhonchi, tachypnea, wheezes Cardiovascular exam: PRESENT: RRR, +S1, +S2. ABSENT: diastolic murmur, irregular rhythm, systolic murmur, tachycardia GI/Abdominal exam: PRESENT: normal bowel sounds, soft. ABSENT: distended, guarding, rebound, tenderness Rectal exam: PRESENT: deferred Gentrourinary exam: ABSENT: indwelling catheter Extremities exam: ABSENT: joint swelling, pedal edema Musculoskeletal exam: PRESENT: ambulatory, normal inspection. ABSENT: deformity Neurological exam: PRESENT: alert, awake, oriented to person, oriented to place, oriented to time, oriented to situation. ABSENT: altered, CN II-XII grossly intact - Please see Dr. Noguera's complete eye exam Psychiatric exam: PRESENT: appropriate affect, normal mood. ABSENT: agitated, anxious Focused psych exam: ABSENT: delusional, paranoid, restlessness Skin exam: PRESENT: dry, normal color, warm. ABSENT: rash Results Laboratory Results: 10/09/19 10:43 10/09/19 10:43 10/09/19 10/09/19 10:43 10:43 WBC 5.6 RBC 4.84 Hgb 15.9 H Hct 44.7 MCV 93 MCH 32.8 MCHC 35.4 RDW 12.5 Plt Count 224 Seg Neutrophils % 45.3 Sodium 138.7 Potassium 3.7 Chloride 101 Carbon Dioxide 30 Anion Gap 8 BUN 19 Creatinine 0.79 Est GFR ( Amer) > 60 Glucose 147 H Calcium 10.2 Total Bilirubin 1.2 AST 33 Alkaline Phosphatase 52 Total Protein 8.0 Albumin 4.7 10/09/19 10/09/19 10:43 10:43 Creatine Kinase 55 CK-MB (CK-2) 0.96 Troponin I < 0.012 Impressions: Chest X-Ray 10/09/19 10:13 IMPRESSION: NO ACUTE RADIOGRAPHIC FINDING IN THE CHEST. Head CT 10/09/19 10:13 IMPRESSION: NO ACUTE INTRACRANIAL FINDINGS. EVIDENCE OF ACUTE STROKE: NO. Assessment and Plan - Diagnosis (1) Vision blurred Is this a current diagnosis for this admission?: Yes Plan: 10/09/2019 The patient experienced an abrupt and almost complete loss of vision in the right eye. It is improving dramatically during her time in the emergency department. (2) Amaurosis fugax of right eye Is this a current diagnosis for this admission?: Yes Plan: [birth year]29 The patient had an abrupt onset of vision loss in the right eye. Thorough exam by the emergency department physician including ultrasound and pupil dilation did not reveal evidence of a detached retina or vitreous hemorrhage. In addition there was no focal abnormality in the retina. A transient interruption in the circulation makes the most sense. She has no history of coronary artery disease. Her only ophthalmologic history is cataract surgery. She does see her neurosurgeon regularly. She is already on an aspirin daily and statin therapy and she does not have uncontrolled hypertension. She does have hyperglycemia but this is not a fasting blood test. She follows regularly with her neurosurgeon and feels that she will be able to call first thing in the morning and be seen. In addition she follows regularly with her primary care provider Dr. Yeung and she states she will call his office first thing in the morning as well for follow-up. I encouraged her to continue her aspirin and statin therapy. Her eyesight has significantly improved from the time of presentation. Certainly other possibilities can be investigated as an outpatient. (3) Hyperlipidemia Qualifiers: Hyperlipidemia type: unspecified Qualified Code(s): E78.5 - Hyperlipidemia, unspecified Is this a current diagnosis for this admission?: Yes Plan: 10/09/2019 Continue statin therapy at home and follow cardiac diet (4) Hypothyroidism Qualifiers: Hypothyroidism type: unspecified Qualified Code(s): E03.9 - Hypothyroidism, unspecified Is this a current diagnosis for this admission?: Yes Plan: 10/08/1929 Continue current dose of levothyroxine (5) Hyperglycemia Is this a current diagnosis for this admission?: Yes Plan: [birth year]/1929 The patient reports no history of diabetes. Her glucose on admission was 156. I do not know how soon after her breakfast this blood was drawn. I will defer to her primary care Dr. Yeung for any further work-up. (6) Hypertension Qualifiers: Hypertension type: essential hypertension Qualified Code(s): I10 - Essential (primary) hypertension Is this a current diagnosis for this admission?: Yes Plan: 10/09/2019 The patient reports a history of hypertension. She states that she was on hydrochlorothiazide at one point. Her blood pressures are acceptable on no medication. Certainly uncontrolled hypertension would create increased risk for thromboembolic event. No additional medication at this time. Again defer to Dr. Yeung for ongoing management. - Time Time Spent with patient: 35 or more minutes Medications reviewed and adjusted accordingly: Yes Anticipated discharge: Home
== END 2019-10-09 15:21 | disposition home or self-care (01) ==
LOC: ER 09:38 → EH 13:15
PROVIDERS: ADMIT Hospitalist; ATTEND Hospitalist
DX: H53.8 Other visual disturbances (principal); G45.3 Amaurosis fugax; I10 Essential (primary) hypertension; R73.9 Hyperglycemia, unspecified; E03.9 Hypothyroidism, unspecified; E78.5 Hyperlipidemia, unspecified; Z86.73 Personal history of transient ischemic attack (TIA), and cerebral infarction without residual deficits; Z79.899 Other long term (current) drug therapy; Z79.82 Long term (current) use of aspirin; Z82.49 Family history of ischemic heart disease and other diseases of the circulatory system; Z98.49 Cataract extraction status, unspecified eye
CPT/HCPCS: 93005; 99285; 36415; 82553; 82962; 82550; 85025; 85652; 85610; 85730; 80053; 84484; 71045; 70450; 93010; A9270; J3490